=== PATIENT | male | born 1950 | race Caucasian/White ===

== ENCOUNTER → 2021-05-18 12:06 | Outpatient (CLI) | payer MEDICARE, SELFPAY ==
--- NOTE | 2021-05-18 12:23 | DI.CT.S_ITS ---
PROCEDURE: CT CHEST ABD PEL WO CON INDICATIONS: SOLITARY PULMINARY NODULE TECHNIQUE: After the administration of oral contrast, 5 mm thick sections acquired from the lung apices to the symphysis pubis. 5 mm thick coronal and sagittal reformats acquired, with additional 7 mm coronal MIP reformats through the lungs. For radiation dose reduction, the following was used: automated exposure control, adjustment of mA and/or kV according to patient size. COMPARISON: None. FINDINGS: Image quality: Excellent. CHEST: Lungs and pleura: Punctate calcifications in both lungs consistent with prior granulomatous disease. 4 mm nodule right upper lobe series 3, image 105 2 mm nodule right middle lobe series 3, image 195 3 x 6 mm nodule right lower lobe laterally series 3, image 238 calcified 4 x 6 mm nodule right lower lobe medially series 3, image 249. 3 x 6 mm nodule left lower lobe peripherally series 3, image 254. No acute pulmonary opacities. No pleural effusions or pneumothorax. Central and peripheral airways are patent are normal in caliber. Mediastinum: Heart size is normal. No pericardial effusion. No mediastinal adenopathy by CT size criteria. Thoracic aorta and central pulmonary arteries are normal in size. Esophagus is normal in caliber. No hiatal hernia. Chest wall: No axillary or supraclavicular adenopathy by size criteria. Thyroid gland is normal. ABDOMEN: Solid organs: Liver is normal in size. A 1 cm cyst in the medial right lobe is present. A 1 cm hypodensity in the right lobe of the liver posteriorly is indeterminate. Gallbladder is normal. Pancreas is normal in contours. Spleen is normal in size. No adrenal nodules. Status post left nephrectomy. No evidence of local recurrence. Peritoneum and bowel: Small and large bowel loops are normal in caliber and wall thickness. No free fluid or air. There is diverticulosis without evidence of diverticulitis. Nodes and vessels: No retroperitoneal or mesenteric adenopathy by size criteria. Aorta and inferior vena cava are normal in size. The aorta has diffuse atherosclerotic calcifications. Miscellaneous: No ventral hernias. PELVIS: Genitourinary: Bladder wall thickness is normal. Miscellaneous: No inguinal hernias or adenopathy. Bones: No suspicious bony lesions. No vertebral body compression fractures. IMPRESSION: 1. Status post right nephrectomy for renal carcinoma with no evidence of local recurrence or adenopathy. 2. 1 cm hypodensity in the right lobe of the liver posteriorly is indeterminate. 3. Multiple pulmonary nodules as above. Some are calcified suggesting prior granulomatous disease. 4. Recommend comparison of the pulmonary and liver lesions described above to prior imaging if available to determine stability over time and/or follow-up imaging to ensure stability. Dictated by: Felice Olmstead M.D. on 05/18/2021 at 13:50 Approved by: Felice Olmstead M.D. on 05/18/2021 at 14:10
== END ==
PROVIDERS: PCP Family Medicine; Referring Provider Family Medicine; Visit Provider Family Medicine
DX: C64.2 Malignant neoplasm of left kidney, except renal pelvis (principal); R91.8 Other nonspecific abnormal finding of lung field; K76.9 Liver disease, unspecified; K57.90 Diverticulosis of intestine, part unspecified, without perforation or abscess without bleeding; Z90.5 Acquired absence of kidney
CPT/HCPCS: 71250; 74176

== ENCOUNTER → 2021-12-15 12:32 | Outpatient (CLI) | payer MEDICARE, SELFPAY ==
--- NOTE | 2021-12-15 12:40 | DI.CT.S_ITS ---
PROCEDURE: CT CHEST ABD PEL WO CON INDICATIONS: 71-year-old male with pulmonary nodules status post left nephrectomy for renal carcinoma TECHNIQUE: After the administration of oral contrast, 5 mm thick sections acquired from the lung apices to the symphysis pubis. 5 mm thick coronal and sagittal reformats acquired, with additional 7 mm coronal MIP reformats through the lungs. For radiation dose reduction, the following was used: automated exposure control, adjustment of mA and/or kV according to patient size. COMPARISON: [facility], CT, CT CHEST ABD PEL WO CON, 05/18/2021, 12:29. FINDINGS: Chest: Cardiovascular: Heart size is normal. No evidence of pulmonary embolism, aortic aneurysm or dissection. Lungs and pleural spaces: Bilateral punctate pulmonary calcified granulomas noted. Additionally, several pulmonary nodules are as follows: 4 mm nodule right upper lobe image 3/102 2 mm nodule right middle lobe image 3/196 4 mm nodule right middle lobe image 3/200 3 x 7 mm nodule in the right lower lobe image 3/223 4 x 6 mm calcified nodule in the azygos recess of the right lower lobe on image 3/237 3 x 6 mm nodule left lower lobe image 3/243 Lymph nodes: No mediastinal, hilar or axillary adenopathy. Mediastinum: Unremarkable. No hiatal hernia. Thyroid within normal limits. Chest Wall and Bones: Unremarkable. No acute fracture. Abdomen and Pelvis: Liver: Normal in size and attenuation. No contour deformity present. Multiple hepatic cysts noted. In the right lower lobe, there is a subcapsular hypodensity which has enlarged slightly from the prior exam now measuring 1.2 cm, previously 1 cm. Biliary system: No calcified cholelithiasis or pericholecystic inflammation. No intra or extrahepatic bile duct dilatation. Pancreas: Unremarkable without mass or inflammation evident. Spleen: The spleen is enlarged at 15.9 cm. No intrinsic mass lesion. Adrenals: Normal morphology and density. Reproductive system: Prostatic hypertrophy. Urinary system: Noncontrast right kidney contains a vague hypodense of lesion now measuring 1.8 x 1.2 cm, new from the prior. There has been a left a left nephrectomy. Gastrointestinal system: The bowel is unremarkable with no evidence of bowel obstruction or inflammation. The stomach appears unremarkable. No findings to suggest acute appendicitis. Lymph nodes: No mesenteric or retroperitoneal adenopathy. Peritoneal spaces: No free air. No free fluid. Vasculature: The IVC, aorta and iliac vasculature are unremarkable. Abdominal wall: Abdominal wall intact without evidence of ventral or inguinal hernias. Musculoskeletal: Normal bone mineralization. No acute fractures. IMPRESSION: 1. Enlarging nonspecific hypodensities in the liver and right kidney are viewed with suspicion for metastatic disease given the patient history and multiple pulmonary nodules. Consider either follow-up contrast MRI abdomen for further evaluation 2. Nevertheless, multiple pulmonary nodules are relatively stable compared to the prior exam. 3. Splenomegaly, prostatic hypertrophy, no lytic or blastic osseous lesion. Approved by: Александр Armstrong M.D. on 12/15/2021 at 14:35
== END ==
PROVIDERS: PCP Family Medicine; Referring Provider Family Medicine; Visit Provider Family Medicine
DX: N18.30 Chronic kidney disease, stage 3 unspecified (principal); R91.8 Other nonspecific abnormal finding of lung field; R16.1 Splenomegaly, not elsewhere classified; N40.0 Benign prostatic hyperplasia without lower urinary tract symptoms
CPT/HCPCS: 71250; 74176

== ENCOUNTER → 2022-01-07 11:02 | Outpatient (CLI) | payer MEDICARE, SELFPAY ==
--- NOTE | 2022-01-07 | DI.MRI.S_ITS ---
PROCEDURE: MR ABDOMEN WO/W CON INDICATIONS: Abnormal radiologic findings; Right kidney TECHNIQUE: Coronal HASTE through abdomen and pelvis; axial 2D FLASH in- and [id number] (with and without fat saturation), and breath-hold T2 FSE from the hepatic dome to the bottom of the kidneys. Coronal HASTE MR urogram of kidneys and bladder. Dynamic coronal VIBE during IV gadolinium administration; postgadolinium axial VIBE or 2D FLASH with fat saturation from the hepatic dome through the kidneys. COMPARISON: [facility], CT, CT CHEST ABD PEL WO CON, 05/18/2021, 12:29. [facility], CT, CT CHEST ABD PEL WO CON, 12/15/2021, 12:43. FINDINGS: Image quality: Excellent. Genitourinary system: The left kidney is surgically absent. The right kidney demonstrates normal size and enhancement. A simple cyst is present within the lower pole of the right kidney which measures 1.5 cm in diameter. No abnormal enhancing renal mass lesions. Other solid organs: The liver demonstrates normal size and homogeneous enhancement. Multiple nonenhancing circumscribed cystic lesions are present in the liver which correspond with the CT examination from December 15, 2021. The gallbladder is unremarkable. The spleen is normal size. The adrenal glands have a normal appearance. The pancreas demonstrates normal size and enhancement. Nodes and vessels: No retroperitoneal or mesenteric adenopathy. Bowel and peritoneum: Visualized loops of bowel demonstrate normal caliber and wall thickness. Lung bases: Lung bases are clear. Bones and soft tissues: No suspicious marrow enhancement. IMPRESSION: 1. Simple renal and hepatic cysts. No findings to suggest new metastatic disease. Dictated by: Verito Piña M.D. on 01/07/2022 at 15:47 Approved by: Verito Piña M.D. on 01/07/2022 at 15:57
== END ==
PROVIDERS: PCP Family Medicine; Referring Provider Family Medicine; Visit Provider Family Medicine
DX: R93.421 Abnormal radiologic findings on diagnostic imaging of right kidney (principal); N28.1 Cyst of kidney, acquired; K76.89 Other specified diseases of liver
CPT/HCPCS: 74183; A9579

== ENCOUNTER → 2024-09-25 10:09 | Outpatient (CLI) | payer MEDICARE, SELFPAY ==
[2024-09-25 10:56] LABS: Add Manual Diff / Slide Review NO; Basophils Absolute Auto 0 /uL (0-100); Basophils Percent Auto 1.2 % (0-2); Eosinophils Absolute Auto 100 /uL (0-450); Eosinophils Percent Auto 2.5 % (2-4); Hematocrit 36.5 % (41-53); Hemoglobin 13.1 g/dL (13.5-17.5); Lymphocytes Absolute Auto 700 /uL (1100-4500); Lymphocytes Percent Auto 20.7 % (25-40); Mean Corpuscular HGB Conc 35.9 % (30-36); Mean Corpuscular Hemoglobin 31.6 PG (26-34); Mean Corpuscular Volume 88.2 fL (80-100); Monocytes Absolute Auto 200 /uL (0-900); Monocytes Percent Auto 5.6 % (3-14); Neutrophils Absolute Auto 2400 /uL (1500-7000); Platelet Count 95 X10^3/uL (150-400); Red Blood Cell Count 4.14 X10^6/uL (4.5-5.9); Red Cell Distribution Width 15.3 % (11.6-14.8); White Blood Cell Count 3.5 X10^3/uL (4.5-11.0)
[2024-09-25 11:11] LABS: Blood Urea Nitrogen 23 mg/dL (9-20); Carbon Dioxide 21 mmol/L (22-32); Chloride 106 mmol/L (98-107); Estimated Glomerular Filt Rate 56 mL/min (>60); Glucose 100 mg/dL (80-110); HEMOLYSIS < 15 (0-50); Potassium 4.2 mmol/L (3.4-5.1); Sodium 137 mmol/L (137-145)
[2024-09-25 11:40] LABS: Prostate Specific Antigen Scrn 0.654 ng/mL (0.1-4.0)
== END ==
PROVIDERS: PCP Family Medicine; Referring Provider Urology; Visit Provider Urology
DX: R91.1 Solitary pulmonary nodule (principal); Z12.5 Encounter for screening for malignant neoplasm of prostate; N28.9 Disorder of kidney and ureter, unspecified; Z85.528 Personal history of other malignant neoplasm of kidney; Z90.5 Acquired absence of kidney
CPT/HCPCS: 36415; 80048; 85025; G0103

== ENCOUNTER → 2024-09-25 10:26 | Outpatient (CLI) | payer MEDICARE, SELFPAY ==
--- NOTE | 2024-09-25 10:27 | DI.CT.S_ITS ---
PROCEDURE: CT ABDOMEN RENAL PROTOCOL INDICATIONS: History of left nephrectomy and right renal lesion TECHNIQUE: Optional 5 mm thick noncontrast images acquired from the diaphragm to the iliac crests. After the administration of intravenous contrast, 5 mm thick images again acquired from the diaphragm to the iliac crests in the arterial and urographic phases. 5 mm thick coronal and sagittal reformats were then acquired. For radiation dose reduction, the following was used: automated exposure control, adjustment of mA and/or kV according to patient size. COMPARISON: [facility], CT, CT CHEST WO CON, 09/25/2024, 11:23. [facility], MR, MR ABDOMEN WO/W CON, 01/07/2022, 11:31. FINDINGS: Image quality: Diagnostic Lower chest: Separately dictated Liver: There are small liver cysts. Subcentimeter lesions are too small to characterize, usually also cysts., attention on follow-up. No highly suspicious lesion identified Gallbladder and biliary system: Unremarkable, nondilated Pancreas: No ductal dilation Spleen: Splenomegaly of 14 cm Adrenals: No discrete nodules Kidneys: 2.4 cm cyst again seen in the right lower pole. No suspicious solid or complicated components. No solid renal mass. Left nephrectomy changes without suspicious finding at the surgical bed Vessels and lymph nodes: No abdominal aortic aneurysm. Atherosclerotic calcifications are present. No portal venous thrombus Bowel and peritoneum: No small bowel obstruction. Moderate fecal loading. No drainable ascites Body wall: Unremarkable Bones: No aggressive appearing osseous abnormality. IMPRESSION: No suspicious finding at the left nephrectomy bed. No solid/complicated lesion in the right kidney. Many liver cysts are present. Subcentimeter lesions however are too small to characterize, attention on follow-up. These are most commonly also cysts. Other findings above. Dictated by: Ritesh Molina M.D. on 09/25/2024 at 13:18 Approved by: Ritesh Molina M.D. on 09/25/2024 at 13:24
--- NOTE | 2024-09-25 10:27 | DI.CT.S_ITS ---
PROCEDURE: CT CHEST WO CON INDICATIONS: Follow-up pulmonary nodules TECHNIQUE: Noncontrast 5 mm thick sections acquired from the pulmonary apices to the posterior costophrenic angles. 1 mm lung window, 5 mm thick coronal and sagittal and 7 mm axial MIP reformats were then acquired. For radiation dose reduction, the following was used: automated exposure control, adjustment of mA and/or kV according to patient size. COMPARISON: [facility], CT, CT CHEST ABD PEL WO CON, 12/15/2021, 12:43. FINDINGS: Image quality: Diagnostic Lungs and pleura: Scattered scarring and atelectasis at the lung bases. There are many pulmonary nodules, the largest nodules as follows, stable: Left costophrenic angle measuring 5 mm (3/242). 5 mm nodule in the right lower lung (3/228), stable. Mediastinum, heart, and esophagus: Normal heart size. No pathologic lymph nodes by size criteria. Unremarkable esophagus Chest wall and thyroid: Unremarkable Upper abdomen: Separately dictated Bones: There are degenerative osseous changes. No aggressive appearing osseous abnormality. IMPRESSION: Numerous pulmonary nodules again seen, stable from prior. No new or enlarging suspicious finding. No airspace consolidation or pleural effusion. Abdominal pelvic findings are separately dictated. Dictated by: Ritesh Molina M.D. on 09/25/2024 at 13:32 Approved by: Ritesh Molina M.D. on 09/25/2024 at 13:39
== END ==
PROVIDERS: PCP Family Medicine; Referring Provider Urology; Visit Provider Urology
DX: N28.9 Disorder of kidney and ureter, unspecified (principal); K76.89 Other specified diseases of liver; N28.1 Cyst of kidney, acquired; R91.1 Solitary pulmonary nodule; R16.1 Splenomegaly, not elsewhere classified; Z90.5 Acquired absence of kidney; Z12.5 Encounter for screening for malignant neoplasm of prostate; Z85.528 Personal history of other malignant neoplasm of kidney
CPT/HCPCS: 36415; 71250; 74170; 80048; 85025; G0103; Q9967